=== PATIENT | male | born 1985 | race Caucasian/White ===

== ENCOUNTER 2017-08-30 01:33 | Emergency (ER) | payer MEDICAID ==
[~2017-08-30] VITALS: Ht 182.9 cm; Wt 66.2 kg
[~2017-08-30 01:33] MED LIST: IBUP-1986 PO
[2017-08-30 01:35] VITALS: BP 129/93
[2017-08-30] MEDS ORDERED: sulfamethoxazole/trimethoprim DS (800/160mg) tablet PO ONE (02:15)
[2017-08-30] MEDS ORDERED: cephalexin 250mg capsule PO ONE (02:15)
[2017-08-30] MEDS ORDERED: CEPH500C5 PO (02:24)
[2017-08-30] MEDS ORDERED: IBUP-1984 PO (02:24)
[2017-08-30] MEDS ORDERED: SULF1TAB49 PO (02:24)
== END 2017-08-30 02:55 | disposition home or self-care (01) ==
LOC: ER 01:33
DX: L03.113 Cellulitis of right upper limb (principal); L50.9 Urticaria, unspecified; F15.10 Other stimulant abuse, uncomplicated; F17.200 Nicotine dependence, unspecified, uncomplicated; Z79.899 Other long term (current) drug therapy
CPT/HCPCS: 99283

== ENCOUNTER → 2018-07-03 | Emergency (ER) | payer MEDICAID ==
[~2018-07-03] VITALS: Ht 180.3 cm; Wt 53.5 kg
[~2018-07-03] MED LIST changes: +CEPH500C5 PO
[2018-07-03 20:31] LABS: ANION GAP 7 (8-16); CHLORIDE 105 MMOL/L (99-107); GLUCOSE 95 MG/DL (70-104); POTASSIUM 3.8 MMOL/L (3.5-5.1); SODIUM 138 MMOL/L (135-145); TOTAL CARBON DIOXIDE 25.9 MMOL/L (24-32)
[2018-07-03 20:32] LABS: ALANINE AMINOTRANSFERASE 25 U/L (12-78); ALBUMIN 3.6 G/DL (3.4-5.0); ALKALINE PHOSPHATASE 90 IU/L (46-116); ASPARTATE AMINO TRANSFERASE 22 U/L (10-37); BILIRUBIN,TOTAL 0.3 MG/DL (0.1-1.0); BLOOD UREA NITROGEN 10 MG/DL (7-18); BUN/CREATININE RATIO 10.6 (5.4-32.0); CALCIUM 9.2 MG/DL (8.5-10.1); CREATININE 0.94 MG/DL (0.60-1.10); TOTAL PROTEIN 7.3 G/DL (6.4-8.2); eGFR > 90 ML/MIN
--- NOTE | 2018-07-03 20:54 | NUR ---
AWAITING VASCULAR US. PT IS CALM AND COOPERATIVE AND WITH STABLE VS.
[2018-07-03 21:10] VITALS: BP 120/83
[2018-07-03 21:38] LABS: BASOPHILS # (AUTO) 0.1 X10'3 (0-0.2); BASOPHILS % (AUTO) 0.9 % (0-1); EOSINOPHILS # (AUTO) 0.3 X10'3 (0-0.9); EOSINOPHILS % (AUTO) 2.6 % (0-6); HEMOGLOBIN 14.6 g/dl (14.0-17.9); LYMPHOCYTES # (AUTO) 2.5 X10'3 (1.1-4.8); LYMPHOCYTES % (AUTO) 25.9 % (21-51); MEAN CORPUSCULAR HEMOGLOBIN 30.4 PG (27.0-31.0); MEAN CORPUSCULAR HGB CONC 33.8 g/dL (33.0-36.5); MEAN CORPUSCULAR VOLUME 89.9 FL (78-98); MEAN PLATELET VOLUME 7.7 FL (7.4-10.4); MONOCYTES # (AUTO) 0.6 X10'3 (0-0.9); MONOCYTES % (AUTO) 6.2 % (2-12); NEUTROPHILS # (AUTO) 6.2 X10'3 (1.8-7.7); NEUTROPHILS % (AUTO) 64.4 % (42-75); PLATELET COUNT 365 X10'3 (140-440); RED BLOOD COUNT 4.79 X10'6 (4.70-6.10); RED CELL DISTRIBUTION WIDTH 13.2 % (11.5-14.5); WHITE BLOOD COUNT 9.6 X10'3 (4.5-11.0)
--- NOTE | 2018-07-03 21:49 | NUR ---
Pt no longer in his room, and gown noted to be on the sheets. Pt last had vs taken 25 min ago. Pt suspected to have eloped. occupational physician Aware.
== END | disposition home or self-care (01) ==
LOC: ER 19:04
DX: M79.672 Pain in left foot (principal); M79.89 Other specified soft tissue disorders; F15.10 Other stimulant abuse, uncomplicated
CPT/HCPCS: 36415; 80053; 85025; 93971; 99284